=== PATIENT | male | born 1995 | race Caucasian/White ===

== ENCOUNTER 2016-05-15 00:19 | Emergency (ER) | payer BC ==
[2016-05-15] MEDS ORDERED: ONDANSETRON 4 MG TAB.RAPDIS PO ONE (02:46)
[2016-05-15] MEDS ORDERED: ONDANSETRON 4 MG TAB.RAPDIS ONE (02:48)
[2016-05-15 03:44] VITALS: BP 128/74
--- NOTE | 2016-05-15 04:07 | ERNOTE ---
Medical Problem HPI - Narrative Date of Service: 05/15/16 - General Chief Complaint: Nausea/Vomiting Time Seen by Provider: 05/15/16 02:43 Source: patient Exam Limitations: no limitations - - Immun/Allergies/Home Medications Immunizations: IMMUNIZATION HX Immunizations Up to Date Yes History of Influenza Vaccine No Hx Pneumococcal Vaccination No Allergies/Adverse Reactions: Allergies No Known Allergies Allergy (Unverified 05/15/16 02:15) Home Medications: HOME MEDICATIONS Ondansetron HCl [Zofran] 4 mg PO Q4H PRN #10 tablet 05/15/16 [Last Taken Unknown ] - History of Present History Narrative: Complaints of multiple episodes of vomiting and diarrhea that started at 1930 hours. Minimal complaints of feeling woozy with standing. Denies any fever or chills. Denies any exposure to sick contacts. Mild abdominal pain, particularly with vomiting. Timing: intermittent Severity: moderate Modifying Factors - (Improves): Present: other - nothing Modifying Factors - (Worsens): Present: other - nothing Review of Systems - Review of Systems Constitutional: Present: See HPI EYE: Present: no symptoms reported ENT: Present: no symptoms reported Respiratory: Present: no symptoms reported Cardiology: Present: no symptoms reported Gastrointestinal/Abdominal: Present: See HPI Genitourinary: Present: no symptoms reported Musculoskeletal: Present: no symptoms reported Skin: Present: no symptoms reported Neurological: Present: no symptoms reported Endocrine: Present: no symptoms reported Hematologic/Lymphatic: Present: no symptoms reported Psych: Present: no symptoms reported - Patient's Past Medical History Patient History - Medical: No pertinent hx Patient History - Cardiac/Respiratory: No pertinent hx Patient History - Cancer: No Hx of Cancer Patient History - Surgical Procedures: Appendectomy Patient History - Other: None - Social History Living Situations: alone Psych History: No pertinent hx Smoking Status: Never smoker Alcohol Use: occasionally Drug Use: none - Immunizations Immunizations Up to Date: Yes Hx Pneumococcal Vaccination: No History of Influenza Vaccine: No Physical Exam - Physical Exam General Appearance: Present: no apparent distress Eye Exam: Normal inspection: bilateral, EOMI: bilateral Ears, Nose, Throat: Present: normal ENT inspection Neck: Present: normal inspection Respiratory: Present: no respiratory distress Cardiovascular/Chest: Present: regular rate, rhythm Gastrointestinal/Abdominal: Present: nontender, nondistended Back Exam: Present: normal inspection, normal range of motion Extremity Exam: Present: normal inspection, normal range of motion Neurological Exam: Present: alert, oriented, normal mood/affect, anglesmith II-XII nml as tested Skin Exam: Present: normal color ED Progress - Vital Signs Patient's Vital Signs:: I have reviewed the patient's vital signs. Vital Signs: Vital Signs 05/15/16 02:08 Temperature 35.9 C L Pulse Rate 90 Respiratory 18 Rate Blood Pressure 137/75 O2 Sat by Pulse 100 Oximetry - Progress/Reassessment Chief Complaint: Nausea/Vomiting Progress Note-Subjective: 05/15/16 04:06 After the Zofran the nausea was lessened and was ready to go home. He was able to retain po fluids. Departure - Departure Clinical Impression: Gastroenteritis Disposition: Home self-care Condition: Good Instructions: Viral Gastroenteritis, Adult, [id number] Language: Kinyarwanda Prescriptions: Ondansetron HCl [Zofran] 4 mg PO Q4H PRN #10 tablet PRN Reason: Nausea
== END 2016-05-15 02:45 | disposition home or self-care (01) ==
LOC: ER 00:19
DX: K52.9 Noninfective gastroenteritis and colitis, unspecified (principal)